=== PATIENT | male | born 1950 | race Two or more races ===

== ENCOUNTER 2021-05-25 22:59 | Emergency (ER) | payer OTHER ==
[~2021-05-25] VITALS: Ht 167.6 cm; Wt 86.2 kg
[2021-05-25] MEDS ORDERED: IOHEXOL 350 MG/ML 100ML IJ ONE (23:29)
[2021-05-25] MEDS ORDERED: ONDANSETRON HCL 4 MG/2 ML VIAL ONE ×2 (23:34)
[2021-05-25] MEDS ORDERED: HYDROmorphone HCL 2 MG/ML VL ONE (23:34)
[2021-05-26] MEDS ORDERED: ONDANSETRON HCL 4 MG/2 ML VIAL IV ONE
[2021-05-26 00:56] LABS: Albumin 3.6 g/dL (3.4-5.0); BUN/Creatinine Ratio 13.1; Bilirubin, Total 1.9 mg/dL (0.2-1.0); Calcium 9.1 mg/dL (8.5-10.1); Magnesium 2.4 mg/dL (1.6-2.6); Potassium 3.7 mmol/L (3.5-5.1)
[2021-05-26 01:45] LABS: INR 1.03 (0.9-1.15); Partial Thromboplastin Time 24.4 sec (23.6-33.0)
[2021-05-26] MEDS ORDERED: SODIUM CHLORIDE 0.9% 1,000 ML IV ONE ×2 (01:45→03:30)
[2021-05-26 02:06] LABS: Basophils # (auto) 0 10 ^3/uL (0-0.2); Basophils % (auto) 0.3 % (0.0-2.0); Eosinophils # (auto) 0 10 ^3/uL (0-0.8); Eosinophils % (auto) 0.8 % (0.0-7.0); Hematocrit 47.2 % (41.0-53.0); Hemoglobin 15.9 g/dL (13.5-17.5); Lymphocytes # (auto) 2.7 10 ^3/uL (0.4-5.4); Mean Corpuscular Hemoglobin 31.1 pg (28.0-32.0); Mean Corpuscular Hgb Conc. 33.7 g/dL (32.0-36.0); Mean Corpuscular Volume 92.5 fL (80.0-100.0); Monocytes # (auto) 0.5 10 ^3/uL (0-1.3); Monocytes % (auto) 8.6 % (0.0-12.0); Neutrophils # (auto) 2.9 10 ^3/uL (1.6-8.6); Neutrophils % (auto) 47.3 % (37.0-80.0); Nucleated Red Blood Cells % 0.1 %; Red Cell Distribution Width 14.1 % (11.8-14.3); White Blood Cell 6.2 10^3/uL (4.4-10.8)
[2021-05-26 03:10] LABS: Urine Bacteria FEW /hpf (None Seen); Urine Blood 3+ /uL (Negative); Urine WBC 1 /hpf (0 - 3)
[2021-05-26 03:11] LABS: Urine Specific Gravity > 1.050 (1.001-1.035)
[2021-05-26] MEDS ORDERED: KETOROLAC TROMETH 30 MG/ML 1ML VIAL IV ONE (03:30)
[2021-05-26] MEDS ORDERED: HYDROmorphone HCL 2 MG/ML VL IV ONE ×2 (03:30)
[2021-05-26 05:16] VITALS: BP 137/95
== END 2021-05-26 05:20 | disposition home or self-care (01) ==
LOC: ER 22:59
DX: N13.2 Hydronephrosis with renal and ureteral calculous obstruction (principal); F43.10 Post-traumatic stress disorder, unspecified
CPT/HCPCS: 36415; 74175; 80053; 81001; 82150; 83690; 83735; 84484; 85025; 85610; 85730; 86850; 86900; 86901; 93005; 96361; 96374; 96375; 96376; 99285; J1170; J1885; J2405; Q9967

== ENCOUNTER 2023-12-06 15:03 | Emergency (ER) | payer OTHER ==
[~2023-12-06] VITALS: Ht 167.6 cm; Wt 87.7 kg
[2023-12-06 16:24] LABS: Urine Bacteria None Seen /hpf (None Seen)
[2023-12-06 16:36] LABS: Urine Blood TRACE /uL (Negative); Urine Clarity Clear (Clear); Urine Color Yellow (Yellow); Urine Mucus FEW (None Seen); Urine Protein, UAD Negative (Negative); Urine Specific Gravity 1.025 (1.001-1.035); Urine Urobilinogen Normal (Negative); Urine WBC 1 /hpf (0 - 3); Urine pH 5.5 (5.0-9.0)
[2023-12-06 18:14] VITALS: BP 107/62; PULSE 65; RESP 18; TEMP 98.4; O2SAT 99
[2023-12-06] MEDS: KETOROLAC TROMETH 60MG/2ML VIAL IM ONE (18:14)
[2023-12-06] MEDS: HYDROcodone-ACET 5/325MG TAB PO ONE (18:14)
== END 2023-12-06 18:20 | disposition left against medical advice (07) ==
LOC: ER 15:03
DX: M51.16 Intervertebral disc disorders with radiculopathy, lumbar region (principal)
CPT/HCPCS: 74176; 81001; 96372; 99285; J1885

== ENCOUNTER 2024-08-23 11:53 | Emergency (ER) | payer OTHER ==
[~2024-08-23] VITALS: Ht 170.2 cm; Wt 85.0 kg
--- NOTE | 2024-08-23 12:02 | ED.PDOC ---
Marty. trauma (HPI) HPI Comments 73 y.o male presents to the ED via EMS s/p mechanical slip and fall earlier today. Patient reports he slipped on a piece of paper that was on the ground and now complains of neck, head, back and left elbow pain. Patient denies any LOC and is alert and oriented x 4, requesting to leave against medical advise. Patient was placed in a C-collar by EMS on scene due to neck pain. Patient has a medical history of HDL, HTN, scoliosis Time Seen by MD: 11:56 Reviewed notes: Nurses Notes, Bench Worker Notes, Medications, Allergies Allergies: Coded Allergies: NO KNOWN ALLERGIES (Unverified , 05/25/21) Information Source: Patient, Emergency Med Personnel Mode of Arrival: EMS Severity: Moderate Timing: Hours Duration: Since onset Prehospital treatment: C-Collar Location: Back, (L) Elbow, Head, Neck Mechanism: Fall Associated signs and symtoms: Headache, Other Past Medical History PAST MEDICAL HISTORY: High Lipids, HTN, Kidney Stones Past Medical History (Other): scoliosis Surgical History: Denies all surgeries Family History Family History: Reviewed,noncontributory to illness Social History Smoker: Non-Smoker Alcohol: Denies ETOH Use Drugs: Denies Drug Use Lives In: Home Constitutional: denies: chills, diaphoresis, fatigue, fever, malaise, sweats, weakness, others EENTM: denies: blurred vision, double vision, ear bleeding, ear discharge, ear drainage, ear pain, ear ringing, eye pain, eye redness, hearing loss, mouth pain, mouth swelling, nasal discharge, nose bleeding, nose congestion, nose pain, photophobia, tearing, throat pain, throat swelling, voice changes, others Respiratory: denies: cough, hemoptysis, orthopnea, SOB at rest, shortness of breath, SOB with excertion, stridor, wheezing, others Cardiovascular: denies: chest pain, dizzy spells, diaphoresis, Dyspnea on exertion, edema, irregular heart beat, left arm pain, lightheadedness, palpitations, PND, syncope, others Gastrointestinal: denies: abdomen distended, abdominal pain, blood streaked bowels, constipated, diarrhea, dysphagia, difficulty swallowing, hematemesis, melena, nausea, poor appetite, poor fluid intake, rectal bleeding, rectal pain, vomiting, others Genitourinary: denies: burning, dysuria, flank pain, frequency, hematuria, incontinence, penile discharge, penile sore, pain, testicle pain, testicle swelling, urgency, others Neurological: reports: headache; denies: dizziness, fainting, left sided numbness, left sided weakness, numbness, paresthesia, pre-existing deficit, right sided numbness, right sided weakness, seizure, speech problems, tingling, tremors, weakness, others Musculoskeletal: reports: back pain, neck pain, others (left elbow pain ); denies: gout, joint pain, joint swelling, muscle pain, muscle stiffness Integumetry: denies: bruises, change in color, change in hair/nails, dryness, laceration, lesions, lumps, rash, wounds, others Allergic/Immunocompromised: denies: Difficulty Healing, Frequent Infections, Hives, Itching, others Hematologic/Lymphatic: denies: anemia, blood clots, easy bleeding, easy bruising, swollen glands, others Endocrine: denies: excessive hunger, excessive sweating, excessive thirst, excessive urination, flushing, intolerance to cold, intolerance to heat, unexplained weight gain, unexplained weight loss, others Psychiatric: denies: anxiety, bipolar disorder, depression, hopeless, panic disorder, schizophrenia, sleepless, suicidal, others All Other Systems: Reviewed and Negative Physical Exam General Appearance: Moderate Distress HEENT: Normal ENT Inspection, Pharynx Normal, TMs Normal Neck: Full Range of Motion, Non-Tender, Normal, Normal Inspection Respiratory: Chest Non-Tender, Lungs Clear, No Accessory Muscle Use, No Respiratory Distress, Normal Breath Sounds Cardiovascular: No Edema, No JVD, No Murmur, No Gallop, Normal Peripheral Pulses, Regular Rate/Rhythm Breast Exam: Deferred Gastrointestinal: No Organomegaly, Non Tender, No Pulsatile Mass, Normal Bowel Sounds, Soft Genitalia: Deferred Pelvic: Deferred Rectal: Deferred Extremities: No calf tenderness, Normal capillary refill, Normal inspection, Normal range of motion, Non-tender, No pedal edema Musculoskeletal : Apperance: Normal Neurologic: Alert, sales associate key holder II-XII nml as Tested, No Motor Deficits, Normal Affect, Normal Mood, No Sensory Deficits Cerebellar Function: Normal Reflexes: Normal Skin: Dry, Normal Color, Warm Peripheral Pulses: 3+ Radial (R), 3+ Radial (L) Lymphatic: No Adenopathy Was a procedure done? Was a procedure done?: No Differential Diagnosis Multiple Trauma: Fractures, Contusion Neck Injury: Cervical Muscle Spasm, Cervical Sprain, Cervical Strain, Cervical Fracture X-Ray, Labs, Meds, VS Vital Signs Date Time Temp Pulse Resp B/P (MAP) Pulse Ox O2 Delivery O2 Flow Rate FiO2 08/23/24 12:06 98.5 66 16 149/80 (103) 97 Patient alert. Status post fall. CT of the head reviewed does not show any acute changes. Vitals stable. Answering all questions. Ambulating. Insists on going home. Does not want to be transferred. Moving all extremities. Mentating well. Cervical spine within normal limits. Explained to the patient. Continue cardiac monitoring. [id number]. Time of 1ST Reevaluation: 11:59 Reevaluation 1ST: Unchanged Patient Education/Counseling: Diagnosis, Treatment, Prognosis Family Education/Counseling: No Family Present Additional Information The following tests were ordered, and results were reviewed by me: X-RAYS Additional Information was gathered from interviewing the following independent historians: Paramedics I reviewed and agreed with the following test results read by other providers: Xray of the cervical/spine, lumbar, left elbow. CT HEAD WITHOUT CONTRAST I discussed treatment and results with medical personnel and patient INDICATION: Trauma COMPARISON: None TECHNIQUE: 5 views of the cervical spine were obtained. FINDINGS: Reversal of the cervical spine curvature. The C6 and C7 vertebral body are obscured due to overlapping osseous structures. The predental space is normal. The intervertebral disc spaces are well-maintained. No significant facet arthropathy is noted. No acute fracture, vertebral compression deformity or aggressive osseous lesions. The imaged lung apices are unremarkable. IMPRESSION: No acute fracture. INDICATION: Trauma COMPARISON: None TECHNIQUE: 2 views of the lumbar spine were obtained. FINDINGS: Straightening of the lumbosacral spine. Moderate multilevel degenerative disc disease of the lumbosacral spine. No acute fracture, vertebral compression deformity or aggressive osseous lesions. The paravertebral soft tissues are grossly unremarkable. IMPRESSION: No acute fracture. Moderate multilevel degenerative disc disease of the lumbosacral spine. CLINICAL INDICATION: Trauma TECHNIQUE: 3 radiographic views of the left elbow were obtained. Comparison: None FINDINGS/IMPRESSION: There is no evidence of acute fracture or dislocation. The visualized joint space is well maintained. The alignment is anatomical. There is no radiopaque foreign body. EXAM: CT HEAD WITHOUT CONTRAST INDICATION: fall TECHNIQUE: CT of the head without intravenous contrast. Coronal and sagittal reformatted images are submitted. Radiation Dose : 1. Head: CT Dose: CTDI volume is 59.98 mGy. Dose-length product is 961.44 mGy*cm The dose indicators for CT are the volume Computed Tomography (CT) Dose Index (CTDIvol) and the Dose Length Product (DLP), and are measured in units of mGy and mGy-cm, respectively. These indicators are not patient dose, but values generated from the CT scanner acquisition factors. The report includes radiation exposure data for exposures received during this examination. All CT scans at this medical facility are performed using dose modulation techniques as appropriate to a performed exam including the following: Automated exposure control was utilized; adjustment of the MA and/or KV according to patient size; and use of iterative reconstruction technique. COMPARISON: None FINDINGS: There is no evidence of acute intracranial hemorrhage, extra-axial collection, mass effect, midline shift, herniation or hydrocephalus. The ventricles, sulci and cisterns are age appropriate. The sotomayor-white differentiation is intact. The mastoid air cells are clear. There is mucosal thickening in the left maxillary sinus and minimal mucosal thickening in the right maxillary sinus. No depressed calvarial fracture. The surrounding soft tissues are unremarkable. IMPRESSION: 1. No evidence of acute intracranial abnormality. Departure 1 Departure Time of Disposition: 16:06 Impression: Primary Impression: Head injury Qualified Codes: S09.90XA - Unspecified injury of head, initial encounter Disposition: ADMITTED INPATIENT Admit to: Med Surg Condition: Guarded Critical Care Note Critical Care Time?: No Stability Stability form required: No I personally scribed for YAMILE ALVARADO MD ([email or web address]) on 08/23/24 at 12:02. Electronically submitted by Katty Dykes ([employer]). I personally scribed for YAMILE ALVARADO MD ([email or web address]) on 08/23/24 at 13:21. Electronically submitted by Katty Dykes ([facility]). YAMILE ALVARADO MD Aug 23, 2024 12:02
[2024-08-23 12:06] VITALS: BP 149/80; PULSE 66; RESP 16; O2SAT 97
--- NOTE | 2024-08-23 12:39 | DVH ---
EXAM: CT HEAD WITHOUT CONTRAST INDICATION: fall TECHNIQUE: CT of the head without intravenous contrast. Coronal and sagittal reformatted images are submitted. Radiation Dose : 1. Head: CT Dose: CTDI volume is 59.98 mGy. Dose-length product is 961.44 mGy*cm The dose indicators for CT are the volume Computed Tomography (CT) Dose Index (CTDIvol) and the Dose Length Product (DLP), and are measured in units of mGy and mGy-cm, respectively. These indicators are not patient dose, but values generated from the CT scanner acquisition factors. The report includes radiation exposure data for exposures received during this examination. All CT scans at this medical facility are performed using dose modulation techniques as appropriate to a performed exam including the following: Automated exposure control was utilized; adjustment of the MA and/or KV according to patient size; and use of iterative reconstruction technique. COMPARISON: None FINDINGS: There is no evidence of acute intracranial hemorrhage, extra-axial collection, mass effect, midline s hift, herniation or hydrocephalus. The ventricles, sulci and cisterns are age appropriate. The sotomayor-white differentiation is intact. The mastoid air cells are clear. There is mucosal thickening in the left maxillary sinus and minimal mucosal thickening in the right maxillary sinus. No depressed calvarial fracture. The surrounding soft tissues are unremarkable. IMPRESSION: 1. No evidence of acute intracranial abnormality.
--- NOTE | 2024-08-23 12:50 | DVH ---
INDICATION: Trauma COMPARISON: None TECHNIQUE: 2 views of the lumbar spine were obtained. FINDINGS: Straightening of the lumbosacral spine. Moderate multilevel degenerative disc disease of the lumbosacral spine. No acute fracture, vertebral compression deformity or aggressive osseous lesions. The paravertebral soft tissues are grossly unremarkable. IMPRESSION: No acute fracture. Moderate multilevel degenerative disc disease of the lumbosacral spine.
--- NOTE | 2024-08-23 12:51 | DVH ---
CLINICAL INDICATION: Trauma TECHNIQUE: 3 radiographic views of the left elbow were obtained. Comparison: None FINDINGS/IMPRESSION: There is no evidence of acute fracture or dislocation. The visualized joint space is well maintained. The alignment is anatomical. There is no radiopaque foreign body.
--- NOTE | 2024-08-23 12:52 | DVH ---
INDICATION: Trauma COMPARISON: None TECHNIQUE: 5 views of the cervical spine were obtained. FINDINGS: Reversal of the cervical spine curvature. The C6 and C7 vertebral body are obscured due to overlappin g osseous structures. The predental space is normal. The intervertebral disc spaces are well-maintained. No significant facet arthropathy is noted. No acute fracture, vertebral compression deformity or aggressive osseous lesions. The imaged lung apices are unremarkable. IMPRESSION: No acute fracture.
[2024-08-24] MEDS ORDERED: ALBUTEROL SULF 2.5 MG/0.5ML(0.5%) NEB SOLN ONE (07:54)
[2024-08-24] MEDS ORDERED: IPRATROPIUM BROM 0.5 MG/2.5ML INH SOL ONE (07:54)
== END 2024-08-23 17:05 | disposition left against medical advice (07) ==
LOC: EDBD 11:53 → ER 11:53 → EDUNIT# 11:53 → ER 17:03
DX: S09.90XA Unspecified injury of head, initial encounter (principal); I10 Essential (primary) hypertension; M54.2 Cervicalgia; W18.09XA Striking against other object with subsequent fall, initial encounter; Y93.89 Activity, other specified; Y92.89 Other specified places as the place of occurrence of the external cause; Y99.8 Other external cause status
CPT/HCPCS: 70450; 72040; 72100; 73070